=== PATIENT | female | born 1960 | race Caucasian/White ===

== ENCOUNTER → 2020-04-19 | Outpatient (CLI) | payer OTHER ==
[~2020-04-19] MED LIST: OMNIPAQUE 350 MG/ML, 100ML BOTTLE ONE
== END | disposition home or self-care (01) ==
LOC: RAD 12:35
PROVIDERS: ATTEND Nurse Practitioner
DX: R91.8 Other nonspecific abnormal finding of lung field (principal); J90 Pleural effusion, not elsewhere classified; E27.8 Other specified disorders of adrenal gland; I31.3 Pericardial effusion (noninflammatory)
CPT/HCPCS: 71260; 74177; Q9967

== ENCOUNTER 2020-09-04 10:29 | Emergency (ER) | payer OTHER ==
[~2020-09-04] VITALS: Ht 160 cm; Wt 68.1 kg
--- NOTE | 2020-09-04 10:52 | NUR ---
PT CAME IN CO CHEST DISCOMFORT WHICH STARTED ON FRI AFTER HE MOST RECENT ROUND OF CHEMO. "I USUALLY GET THIS PAIN AFTER CHEMO BUT THIS TIME IT FELT WORSE". PT ALSO CO OF SOB SINCE THEN. PT HAS A PICC LINE IN HER LEFT ARM FOR CHEMO INFUSIONS. PT ACCOMPANIED BY . EKG COMPLETE. CONNECTED TO ALL MONITORINW EQUIPMENT
[2020-09-04] MEDS ORDERED: HYDROmorphone 2 MG/ML, 1ML IVPush PRN (11:30)
[2020-09-04] MEDS ORDERED: ONDANSETRON 2MG/ML, 2ML IVPush ONE (11:30)
[2020-09-04] MEDS ORDERED: SODIUM CHLORIDE FLUSH 10ML SYR IVF ONE (11:30)
[2020-09-04] MEDS ORDERED: ONDANSETRON 2MG/ML, 2ML ONE (11:37)
[2020-09-04] MEDS ORDERED: HYDROmorphone 1 MG/ML, 1ML INJ ONE (11:37)
[2020-09-04 12:09] LABS: BASOPHILS % (AUTO) 1 % (0-1); EOSINOPHILS % (AUTO) 1 % (1-7); LYMPHOCYTES % (AUTO) 9 % (22-44); MEAN CORPUSCULAR HEMOGLOBIN 29.8 pg (27.0-34.8); MEAN CORPUSCULAR HGB CONC 34.6 g/dL (32.4-35.8); MEAN PLATELET VOLUME 9.4 fL (7.4-10.4); MONOCYTES % (AUTO) 1 % (2-9); NEUTROPHILS % (AUTO) 90 % (42-75); PLATELET COUNT 152 x10^3/uL (130-400); RED BLOOD COUNT 4.28 x10^6/uL (3.82-5.3)
[2020-09-04 12:11] LABS: MD NO
--- NOTE | 2020-09-04 12:13 | NUR ---
PT MEDICATED PER AUG. PICC LINE CLEANED AND CAPS CHANGED OUT
[2020-09-04 12:18] LABS: ALANINE AMINOTRANSFERASE 82 U/L (12-78); ALBUMIN 3.7 g/dL (3.4-5.0); ANION GAP 5 mmol/L (5-15); CALCIUM 8.7 mg/dL (8.5-10.1); CHLORIDE 110 mmol/L (98-107); CREATININE 0.51 mg/dL (0.55-1.02)
[2020-09-04 12:31] LABS: ALKALINE PHOSPHATASE 105 U/L (45-117); BILIRUBIN,TOTAL 0.3 mg/dL (0.2-1.0); TOTAL PROTEIN 6.6 g/dL (6.4-8.2); TROPONIN I < 0.015 ng/mL (0.000-0.045)
--- NOTE | 2020-09-04 12:46 | NUR ---
PT TO CT AT THIS TIME
[2020-09-04] MEDS ORDERED: OMNIPAQUE 350 MG/ML, 75ML BOTTLE ONE (13:30)
[2020-09-04 14:07] VITALS: BP 128/77
== END 2020-09-04 14:56 | disposition home or self-care (01) ==
LOC: ED 14:44
DX: R07.89 Other chest pain (principal); C81.90 Hodgkin lymphoma, unspecified, unspecified site; E78.5 Hyperlipidemia, unspecified
CPT/HCPCS: 36415; 71045; 71260; 80053; 83605; 84484; 85025; 93005; 96374; 96375; 99285; J1170; J2405; Q9967